=== PATIENT | male | born 1950 | race Caucasian/White ===

== ENCOUNTER 2017-04-06 10:22 | Emergency (ER) | payer SELFPAY ==
[2017-04-06 10:27] VITALS: TEMP 99.4; BMI 36.3
--- NOTE | 2017-04-06 10:43 | PDOC ---
Attending Attestation - Resident Resident Name: Warren Gillette - ED Attending Attestation I have performed the following: I have examined & evaluated the patient, The case was reviewed & discussed with the resident, I agree w/resident's findings & plan, Exceptions are as noted - HPI HPI: 04/06/17 10:58 66 yo M c/ hx of HTN, DM p/w cough x 3 weeks. The patient travels for several months of the year to [facility]. Recently returned yesterday. For 3 weeks, has had coughing with in the last 3 days with small amounts of hemoptysis. Denies chest or SOB, but has been endorsing tactile fevers and night sweats. Pt denies prior hx of TB but does report that TB is quite prevalent in [facility]. Flew in yesterday and came in today for an evaluation. - Physicial Exam PE: 04/06/17 11:00 GENERAL: Awake, alert, and fully oriented, in no acute distress. HEAD: No signs of trauma EYES: PERRLA, EOMI, sclera anicteric, conjunctiva clear ENT: Auricles normal inspection, hearing grossly normal, nares patent, oropharynx clear without exudates. NECK: Normal ROM, supple LUNGS: Breath sounds grossly clear bilaterally. Occasionally ronchorous. HEART: Regular rate and rhythm, normal S1 and S2, no murmurs, rubs or gallops ABDOMEN: Soft, nontender, normoactive bowel sounds. No guarding, no rebound. No masses EXTREMITIES: Normal range of motion, no edema. No clubbing or cyanosis. No cords, erythema, or tenderness NEUROLOGICAL: Cranial nerves II through XII grossly intact. Normal speech, normal gait SKIN: Warm, Dry, normal turgor, no rashes or lesions noted. - Medical Decision Making 04/06/17 11:00 Vital Signs Temp Pulse Resp BP Pulse Ox 99.4 F 110 H 18 161/101 96 04/06/17 10:22 04/06/17 10:22 04/06/17 10:22 04/06/17 10:22 04/06/17 10:22 The patient overall appears nontoxic, but given his history of DM and cough, it' ll be important to evaluate for PNA, bronchitis, vs. viral syndrome. However, given the small amounts of hemotypsis and from [facility], TB should be considered. Patient is placed in isolation. Consult ID after results and imaging return. In addition, will also perform CTA to rule out PE. Labs, cultures, and reassess. 04/06/17 13:23 CAT scan the chest demonstrates no acute lung pathology. Does demonstrate a possible partially left adrenal nodule measuring 1.8 cm. This may potentially be adrenal adenoma. The resident Dr. Gillette had consulted Dr. Slaughter. According to infectious disease, if the CAT scan of the head demonstrates no findings consistent with tuberculosis, patient can be discharged. CAT scan demonstrates no acute findings , so we'll discharge as bronchitis. We'll initiate with azithromycin and have the patient follow-up with his primary care physician. We'll inform the patient and his son regarding the nodule to have this follow- up with his doctor. Heart Score/ECG Review #1 ECG reviewed & interpreted by me at: 11:20 04/06/17 11:22 NSR 103, no std/caro, T wave flat III, QTC 461 msec
[2017-04-06] MEDS ORDERED: SODIUM CHLORIDE 1,000 ML IV STA (10:44)
--- NOTE | 2017-04-06 11:18 | PDOC ---
History of Present Illness - General Chief Complaint: Cold Symptoms Stated Complaint: COUGH Time Seen by Provider: 04/06/17 10:25 History Source: Patient Exam Limitations: No Limitations - History of Present Illness Initial Comments: 04/06/17 11:13 Patient is a 66M immigrant from [facility] (arrived yesterday), HTN, HLD, and DM ( on metformin) here today complaining of scant hemoptysis for the past 3 days, with a preceding cough for the past 3 weeks. He endorses associated nightsweats , and pain with swallowing. Patient denies history of incarceration. Patient denies chest pain, history of clots, leg swelling. Patient believes that he was vaccinated for TB. Patient denies sick contacts. Denies nausea, vomiting, abdominal pain. Denies smoking and illicits. Endorses alcohol use. Past History - Past Medical History Allergies/Adverse Reactions: Allergies Allergy/AdvReac Type Severity Reaction Status Date / Time No Known Allergies Allergy Verified 04/06/17 10:31 Home Medications: Ambulatory Orders Azithromycin [Zithromax 250mg Tablets -] 250 mg PO UTDICT #6 tab 04/06/17 Azithromycin [Zithromax 250mg Tablets -] 250 mg PO UTDICT #6 tab 04/06/17 Enalapril Maleate [Vasotec] 20 mg PO DAILY 04/06/17 Metformin HCl 0 mg PO BID 04/06/17 COPD: No Diabetes: Yes HTN: Yes - Suicide/Smoking/Psychosocial Hx Smoking History: Never smoked Hx Alcohol Use: Yes Drug/Substance Use Hx: No Substance Use Type: Alcohol Review of Systems - Review of Systems Comments:: 04/06/17 11:18 GENERAL/CONSTITUTIONAL: Positive for fever or chills. No weakness. HEAD, EYES, EARS, NOSE AND THROAT: No change in vision. No ear pain or discharge. Positive for sore throat. CARDIOVASCULAR: No chest pain or shortness of breath RESPIRATORY: Positive for cough and hemoptysis GASTROINTESTINAL: No nausea, vomiting, diarrhea. Positive for constipation. GENITOURINARY: No dysuria, frequency, or change in urination. MUSCULOSKELETAL: No joint or muscle swelling or pain. No neck or back pain. SKIN: No rash NEUROLOGIC: No headache, vertigo, loss of consciousness, or change in strength/ sensation. ENDOCRINE: No increased thirst. No abnormal weight change HEMATOLOGIC/LYMPHATIC: No anemia, easy bleeding, or history of blood clots. ALLERGIC/IMMUNOLOGIC: No hives or skin allergy. *Physical Exam - Vital Signs Last Vital Signs Temp Pulse Resp BP Pulse Ox 99.4 F 110 H 18 161/101 96 04/06/17 10:22 04/06/17 10:22 04/06/17 10:22 04/06/17 10:22 04/06/17 10:22 - Physical Exam Comments: 04/06/17 11:19 GENERAL: Awake, alert, and fully oriented, in no acute distress, coughing HEAD: No signs of trauma, normocephalic, atraumatic EYES: PERRLA, EOMI, sclera anicteric, conjunctiva clear ENT: Auricles normal inspection, hearing grossly normal, nares patent, oropharynx clear without exudates. Moist mucosa NECK: Normal ROM, supple, no lymphadenopathy, JVD, or masses LUNGS: Coarse breath sounds, speaks full sentences, clear to auscultation bilaterally HEART: Regular rate and rhythm, normal S1 and S2, no murmurs, rubs or gallops, peripheral pulses normal and equal bilaterally. ABDOMEN: Soft, nontender, normoactive bowel sounds. No guarding, no rebound. No masses EXTREMITIES: Normal inspection, Normal range of motion, no edema. No clubbing or cyanosis. NEUROLOGICAL: Cranial nerves II through XII grossly intact. Normal speech, normal gait, no focal sensorimotor deficits SKIN: Warm, Dry, normal turgor, no rashes or lesions noted. ED Treatment Course - LABORATORY CBC & Chemistry Diagram: 04/06/17 10:58 04/06/17 10:58 - RADIOLOGY Radiology Studies Ordered: Category Date Time Status CHEST CTA [CT] Stat CT Scan 04/06/17 10:42 Ordered CHEST X-RAY PORTABLE* [RAD] Stat Radiology 04/06/17 10:42 Ordered Medical Decision Making - Medical Decision Making 04/06/17 11:21 66M immigrant from [facility], HTN, DM, HLD here today complaining of hemoptysis. Vital signs notable for tachycardia. Differential diagnosis is broad, but includes: TB, PE, pneumonia, new onset copd exacerbation. Will evaluate with cbc , cmp, lactate, pt/inr, cxr, cta pe, trop. Will consult ID. Will treat with 1L of fluids. 04/06/17 11:46 EKG shows sinus tachycardia, rate 103. Normal axis. Normal DC, QRS, QTc intervals. No st elevations. No significant t wave abnormalities. CXR read as normal. 04/06/17 12:35 Dr Slaughter consulted, appreciate recs. He recommends CT scan of chest, says that patient is safe to discharge with outpatient workup if CT negative. 04/06/17 12:36 Laboratory Tests 04/06/17 04/06/17 04/06/17 10:58 10:58 10:58 WBC 8.7 Hgb 16.2 Hct 46.3 Plt Count 291 INR 1.07 Anion Gap 7 L Random Glucose 258 H Troponin I 04/06/17 10:58 WBC Hgb Hct Plt Count INR Anion Gap Random Glucose Troponin I < 0.03 CBC normal. INR negative. Glucose elevated, rest of CMP reassuring. Trop undetectable. Lactate pending. CXR read as normal by radiology. CT chest pending. 04/06/17 13:22 CTA chest shows no PE, shows possible adrenal adenoma. Patient advised of result , told to follow up with primary care physician. Lactate canceled given patient' s well appearance and lac of gap on CMP. 04/06/17 13:33 HR 99. Patient appears well. Will follow up with PCP. *DC/Admit/Observation/Transfer Diagnosis at time of Disposition: Cough - Discharge Dispostion Disposition: HOME Condition at time of disposition: Good Admit: No - Prescriptions Prescriptions: Azithromycin [Zithromax 250mg Tablets -] 250 mg PO UTDICT #6 tab Azithromycin [Zithromax 250mg Tablets -] 250 mg PO UTDICT #6 tab - Referrals - Patient Instructions Printed Discharge Instructions: DI for Acute Bronchitis Additional Instructions: You were seen today in the ED for cough. You were given a prescription for antibiotics. Please take them as prescribed and complete the course even if you feel better. You were found to have a possible adrenal adenoma. A copy of your CT scan report has been provided to you. Please follow up with your primary care physician. Please return if you have any new worsening or concerning symptoms. Please follow up with your PCP in the next week. - Post Discharge Activity
[2017-04-06 11:30] LABS: EOS % 1.4 % (0-4.5)
[2017-04-06 11:44] LABS: BASO % 0.4 % (0-2.0); HEMATOCRIT 46.3 % (35.4-49); HEMOGLOBIN 16.2 GM/dl (11.7-16.9); LYMPH % 21.8 % (8-40); MCH 32.3 pg (25.7-33.7); MEAN CELL VOLUME 92.4 fl (80-96); MEAN PLT VOLUME 7.8 fl (7.5-11.1); MONO % 7.8 % (3.8-10.2); NEUT % 68.6 % (42.8-82.8); PLATELET COUNT 291 K/MM3 (134-434); RBC 5.01 M/mm3 (4.00-5.60); RDW 11.4 % (11.9-15.9); WHITE BLOOD COUNT 8.7 K/mm3 (4.0-10.8)
[2017-04-06 11:46] LABS: INR 1.07 (0.82-1.09)
[2017-04-06 11:50] LABS: ALBUMIN 3.9 g/dl (3.5-5.0); ALK PHOS 80 U/L (32-92); ANION GAP 7 (8-16); BLOOD UREA NITROGEN 17 mg/dl (7-18); CALCIUM 9.2 mg/dl (8.4-10.2); CHLORIDE 102 mmol/L (98-107); CO2 27 mmol/L (22-28); CREATININE 0.8 mg/dl (0.6-1.3); GLUCOSE,RANDOM 258 mg/dl (74-106); POTASSIUM 3.9 mmol/L (3.5-5.1); SGOT/AST 27 U/L (10-42); SGPT/ALT 32 U/L (10-40); SODIUM 136 mmol/L (136-145)
[2017-04-06 12:42] VITALS: BP 153/100
[2017-04-06 13:40] VITALS: PULSE 99
--- NOTE | 2017-04-09 19:56 | EKG ---
Test Reason : Blood Pressure : / mmHG Vent. Rate : 103 BPM Atrial Rate : 103 BPM P-R Int : 180 ms QRS Dur : 084 ms QT Int : 352 ms P-R-T Axes : 048 -10 055 degrees QTc Int : 461 ms SINUS TACHYCARDIA CANNOT RULE OUT INFERIOR INFARCT , AGE UNDETERMINED ABNORMAL ECG NO PREVIOUS ECGS AVAILABLE Confirmed by LYN BROOKS MD ([id number]) on 04/09/2017 7:56:30 PM Referred By: ERICA WOOD Confirmed By:LYN BROOKS MD
== END 2017-04-06 13:46 | disposition home or self-care (01) ==
LOC: FER 10:22
PROC: 3E0337Z Introduction of Electrolytic and Water Balance Substance into Peripheral Vein, Percutaneous Approach (ICD-10-PCS; principal; 2017-04-06)
DX: R05 Cough (principal); E11.9 Type 2 diabetes mellitus without complications; I10 Essential (primary) hypertension
CPT/HCPCS: 36415; 71045-TC-FY; 71275-TC; 80053; 83605; 84484; 85025; 85610; 86850; 86900; 86901; 87040; 93005; 99283-25

== ENCOUNTER 2017-11-03 18:24 | Emergency (ER) | payer OTHER ==
[2017-11-03 18:36] VITALS: BP 148/92; PULSE 68; TEMP 98.5; BMI 36.1
--- NOTE | 2017-11-03 18:45 | PDOC ---
History of Present Illness - General History Source: Patient, Family (Daughter.) Exam Limitations: No Limitations - History of Present Illness Initial Comments: 11/03/17 18:51 The patient is a 66 year old male, with a significant past medical history of HTN, HLD, DM, who presents to the emergency department with, 2 days of elevated blood pressure. As per patients daughter, his blood pressure has been ranging between 170s/90s to 190s/110s with an associated headache and diffuse weakness. She reports that today the patient doubled his dosage of Enalapril 20 mg (one morning and one evening) as his PCP (unknown doctor at [facility]) recommended. The daughter also reports that for many years this patients blood pressure normally becomes elevated around this time of year. The patient was recently evaluated by his ordnance technician and flower picker without any pertinent findings within the past month. He denies any loss of strength or sensation. He denies any recent fevers, chills, or dizziness. He denies any recent nausea, vomit, diarrhea or constipation. He denies any recent chest pain or shortness of breath. He denies any recent dysuria, frequency, urgency or hematuria. The history was taken from the patients daughter at bedside due to language barriers. Allergies: NKA Past surgical history: None reported. Social History: Social alcohol usage. Nonsmoker. Denies recreational drug use. <Farheen Hand - Last Filed: 11/03/17 18:50> <Suzan Maldonado - Last Filed: 11/04/17 11:46> - General Chief Complaint: Blood Pressure Problem Stated Complaint: HTN Time Seen by Provider: 11/03/17 18:34 Past History <Farheen Hand - Last Filed: 11/03/17 18:50> - Past Medical History COPD: No Diabetes: Yes HTN: Yes - Suicide/Smoking/Psychosocial Hx Smoking History: Never smoked Have you smoked in the past 12 months: No Information on smoking cessation initiated: No Hx Alcohol Use: No Drug/Substance Use Hx: No Substance Use Type: Alcohol <Suzan Maldonado - Last Filed: 11/04/17 11:46> - Past Medical History Allergies/Adverse Reactions: Allergies Allergy/AdvReac Type Severity Reaction Status Date / Time No Known Allergies Allergy Verified 11/03/17 18:25 Home Medications: Ambulatory Orders Enalapril Maleate [Vasotec] 20 mg PO DAILY 04/06/17 metFORMIN HCL [Metformin HCl] 2,000 mg PO BID 04/06/17 Atorvastatin Ca [Lipitor] 40 mg PO HS 11/03/17 Review of Systems - Review of Systems Able to Perform ROS?: Yes Comments:: 11/03/17 18:51 +GENERAL/CONSTITUTIONAL: Diffuse weakness. No fever or chills. HEAD, EYES, EARS, NOSE AND THROAT: No change in vision. No ear pain or discharge. No sore throat. CARDIOVASCULAR: No chest pain or shortness of breath. RESPIRATORY: No cough, wheezing, or hemoptysis. GASTROINTESTINAL: No nausea, vomiting, diarrhea or constipation. GENITOURINARY: No dysuria, frequency, or change in urination. MUSCULOSKELETAL: No joint or muscle swelling or pain. No neck or back pain. SKIN: No rash +NEUROLOGIC: Headache. No vertigo, loss of consciousness, or change in strength/ sensation. ENDOCRINE: No increased thirst. No abnormal weight change. HEMATOLOGIC/LYMPHATIC: No anemia, easy bleeding, or history of blood clots. ALLERGIC/IMMUNOLOGIC: No hives or skin allergy. All Other Systems: Reviewed and Negative <Farheen Hand - Last Filed: 11/03/17 18:50> *Physical Exam - Vital Signs Last Vital Signs Temp Pulse Resp BP Pulse Ox 98.5 F 68 20 148/92 99 11/03/17 18:25 11/03/17 18:25 11/03/17 18:25 11/03/17 18:25 11/03/17 18:25 - Physical Exam Comments: 11/03/17 18:51 GENERAL: Awake, alert, and fully oriented, in no acute distress HEAD: No signs of trauma ENT: Hearing grossly normal, nares patent, oropharynx clear without exudates. Moist mucosa NECK: Normal ROM, supple, no lymphadenopathy, JVD, or masses LUNGS: Breath sounds equal, clear to auscultation bilaterally. No wheezes, and no crackles HEART: Regular rate and rhythm, normal S1 and S2, no murmurs, rubs or gallops ABDOMEN: Soft, nontender, normoactive bowel sounds. No guarding, no rebound. No masses EXTREMITIES: Normal range of motion, no edema. No clubbing or cyanosis. No cords, erythema, or tenderness NEUROLOGICAL: Cranial nerves II through XII grossly intact. Normal speech, normal gait SKIN: Warm, Dry, normal turgor, no rashes or lesions noted. <Farheen Hand - Last Filed: 11/03/17 18:50> - Vital Signs Last Vital Signs Temp Pulse Resp BP Pulse Ox 98.5 F 68 20 148/92 99 11/03/17 18:25 11/03/17 18:25 11/03/17 18:25 11/03/17 18:25 11/03/17 18:25 <Suzan Maldonado - Last Filed: 11/04/17 11:46> Heart Score/ECG Review - ECG Impressions Comment:: EKG read 19:03- sinus rhythm with 1st deg AV block, rate 68 bpm, incomplete RBBB Similar to prior EKG from March 2017 <Suzan Maldonado - Last Filed: 11/04/17 11:46> Medical Decision Making - Medical Decision Making Pt with HTN, no significant neuro or cardiac symptoms. BP is at his baseline at present after taking extra dose of enalapril. As this change in BP seems to happen at certain times of the year, would not add additional medications at this time. Will refer back to his PMD, as he will need to be monitored closely if any changes needed. <Suzan Maldonado - Last Filed: 11/04/17 11:46> *DC/Admit/Observation/Transfer - Attestations Scribe Attestion: 11/03/17 18:51 Documentation prepared by Farheen Hand, acting as medical billing service for Suzan Maldonado MD. <Farheen Hand - Last Filed: 11/03/17 18:50> - Discharge Dispostion Decision to Admit order: No <Suzan Maldonado - Last Filed: 11/04/17 11:46> Diagnosis at time of Disposition: Hypertension Qualifiers: Hypertension type: essential hypertension Qualified Code(s): I10 - Essential ( primary) hypertension - Discharge Dispostion Disposition: HOME Condition at time of disposition: Stable - Patient Instructions Printed Discharge Instructions: DI for High Blood Pressure Additional Instructions: CONTINUE TO TAKE MEDICATION PRESCRIBED. IF BLOOD PRESSURE IS ELEVATED TOMORROW, CAN TAKE AN EXTRA DOSE OF MEDICATION YOU DID TODAY. FOLLOW UP WITH YOUR DOCTOR ON SUNDAY, THE MEDICATION MAY NEED TO BE ADJUSTED IF YOUR BLOOD PRESSURE REMAINS HIGH.
--- NOTE | 2017-11-04 22:22 | EKG ---
Test Reason : Blood Pressure : / mmHG Vent. Rate : 067 BPM Atrial Rate : 067 BPM P-R Int : 218 ms QRS Dur : 092 ms QT Int : 398 ms P-R-T Axes : 043 -04 046 degrees QTc Int : 420 ms SINUS RHYTHM WITH 1ST DEGREE A-V BLOCK INCOMPLETE RIGHT BUNDLE BRANCH BLOCK POSSIBLE INFERIOR INFARCT (CITED ON OR BEFORE 06-APR-2017) ABNORMAL ECG WHEN COMPARED WITH ECG OF 06-APR-2017 11:20, MD INTERVAL HAS INCREASED VENT. RATE HAS DECREASED BY 36 BPM Confirmed by ROMAIN DACOSTA MD ([id number]) on 11/04/2017 10:21:54 PM Referred By: DR HA Confirmed By:ROMAIN DACOSTA MD
== END 2017-11-03 19:16 | disposition home or self-care (01) ==
LOC: FER 18:24
DX: I10 Essential (primary) hypertension (principal); E11.9 Type 2 diabetes mellitus without complications
CPT/HCPCS: 93005; 99281-25

== ENCOUNTER 2019-03-24 09:47 | Emergency (ER) | payer OTHER ==
--- NOTE | 2019-03-24 09:50 | PDOC ---
History of Present Illness <Damien Jimenes - Last Filed: 03/24/19 12:39> - General History Source: Patient, Family Exam Limitations: Language Barrier - History of Present Illness Initial Comments: 03/24/19 09:50 Quang Black is a 68 year old Cypriot male with PMH HTN, HLD, DM presenting with one month of dizziness and unsteady gait. Patient presents with daughter who lives with him and translates. Patient and daughter report patient has been having one month of what patient describes as dizziness, now with worsening unsteady gait for the last 10 days. Does not say that his legs feel weak or that the room is spinning, but rather that he feels off-balance like he is going to fall. Almost fell 3 days ago, denies any head injury or LOC. Daughter brought here today for worsening ability to ambulate. Denies prior history of dizziness, denies room-spinning vertigo, denies tinnitus. Denies any chest pain, palpitations, SOB, abdominal pain. Does endorse a PISANO, occurs sporadically in the back of his head, no inciting triggers , stays for 40 minutes and disappears on its own, has trialled Tylenol and Advil without effect, denies vision changes or related N/V. No known allergies. Takes anti-hypertensive medications daily, says BP has been elevated. PMD Dr. Sotelo (?), has not seen in >6 months. PSH R ankle procedure for injury a long time ago, R eye surgery <Jhon Valdez - Last Filed: 03/24/19 15:48> - General Chief Complaint: Lightheaded Stated Complaint: DIZZINESS Time Seen by Provider: 03/24/19 09:49 Past History <Damien Jimenes - Last Filed: 03/24/19 12:39> - Past Medical History COPD: No Diabetes: Yes HTN: Yes - Psycho Social/Smoking Cessation Hx Smoking History: Never smoked Have you smoked in the past 12 months: No Hx Alcohol Use: No Drug/Substance Use Hx: No Substance Use Type: Alcohol <Jhon Valdez - Last Filed: 03/24/19 15:48> - Past Medical History Allergies/Adverse Reactions: Allergies Allergy/AdvReac Type Severity Reaction Status Date / Time No Known Allergies Allergy Verified 03/24/19 09:49 Home Medications: Ambulatory Orders Aspirin [Aspirin EC] 81 mg PO DAILY 03/24/19 Atorvastatin Ca [Lipitor] 10 mg PO HS 03/24/19 Enalapril Maleate [Vasotec] 20 mg PO DAILY 03/24/19 Hydrochlorothiazide [Hctz -] 25 mg PO DAILY 03/24/19 Meclizine HCl [Antivert -] 25 mg PO TID #20 tablet 03/24/19 Metformin HCl [Glucophage] 1,000 mg PO BID 03/24/19 Review of Systems - Review of Systems Able to Perform ROS?: Yes Constitutional: No: Chills, Fever HEENTM: No: Blurred Vision, Double Vision, Hearing Loss Respiratory: No: Cough, Shortness of Breath, Productive cough Cardiac (ROS): No: Chest Pain, Edema, Irregular Heart Rate, Lightheadedness, Palpitations, Syncope, Chest Tightness ABD/GI: No: Constipated, Diarrhea, Nausea, Poor Appetite, Poor Fluid Intake, Vomiting : No: Symptoms Reported Musculoskeletal: No: Back Pain, Muscle Pain, Muscle Weakness, Neck Pain Integumentary: No: Symptoms Reported Neurological: Yes: Headache, Unsteady Gait, Dizziness. No: Numbness, Paresthesia, Weakness Endocrine: No: Symptoms Reported Hematologic/Lymphatic: No: Symptoms Reported All Other Systems: Reviewed and Negative <Jhon Valdez - Last Filed: 03/24/19 15:48> *Physical Exam - Vital Signs Last Vital Signs Temp Pulse Resp BP Pulse Ox 98.5 F 73 16 156/103 H 96 03/24/19 09:47 03/24/19 11:58 03/24/19 10:05 03/24/19 11:58 03/24/19 10:05 <Damien Jimenes - Last Filed: 03/24/19 12:39> - Physical Exam General Appearance: Yes: Nourished, Appropriately Dressed, Other (well- appearing male resting comfortably in bed in no acute distress). No: Apparent Distress HEENT: positive: EOMI, ZOHREH, Normal ENT Inspection, Normal Voice, Symmetrical, Pharynx Normal, Hearing Grossly Normal. negative: Scleral Icterus (R), Scleral Icterus (L), Pharyngeal Erythema, Tonsillar Exudate, Hearing Decreased Neck: positive: Trachea midline, Normal Thyroid, Supple. negative: Tender, Decreased range of motion, Lymphadenopathy (R), Lymphadenopathy (L) Respiratory/Chest: positive: Lungs Clear, Normal Breath Sounds. negative: Chest Tender, Respiratory Distress, Accessory Muscle Use, Crackles, Rales, Rhonchi, Stridor, Wheezing Cardiovascular: positive: Regular Rhythm, Regular Rate. negative: Murmur Gastrointestinal/Abdominal: positive: Normal Bowel Sounds, Soft, Protuberent. negative: Tender, Organomegaly, Pulsatile Mass, Guarding, Rebound Musculoskeletal: positive: Normal Inspection. negative: CVA Tenderness, Decreased Range of Motion Extremity: positive: Normal Capillary Refill, Normal Inspection, Normal Range of Motion, Pelvis Stable. negative: Tender Integumentary: positive: Normal Color, Dry, Warm. negative: Jaundice, Mottled, Cold, Clammy, Diaphoresis, Swelling Neurologic: positive: pot builder II-XII NML intact, Fully Oriented, Alert, Normal Mood/ Affect, Normal Response, Motor Strength 5/5, Finger to Nose (normal), Other ( Normal gait, but has truncal ataxia after standing/walking for >30 seconds. CN exam normal. 5/5 motor strength all groups. No sensory deficits to LT. No nystagmus. HINTS: no saccades, no nystagmus, no skew.). negative: Numbness, Sensory Deficit <Jhon Valdez - Last Filed: 03/24/19 15:48> ED Treatment Course - LABORATORY CBC & Chemistry Diagram: 03/24/19 10:20 03/24/19 10:20 - ADDITIONAL ORDERS Additional order review: Laboratory Results 03/24/19 03/24/19 03/24/19 10:20 10:20 10:20 Sodium 137 Potassium 3.8 Chloride 102 Carbon Dioxide 28 Anion Gap 7 L BUN 15.0 Creatinine 1.0 Est GFR (CKD-EPI)AfAm 89.23 Est GFR (CKD-EPI)NonAf 76.99 Random Glucose 155 H Calcium 9.1 Total Bilirubin 0.8 AST 23 ALT 35 Alkaline Phosphatase 60 Creatine Kinase 43 Troponin I < 0.03 Total Protein 7.0 Albumin 4.1 03/24/19 10:20 RBC 4.64 MCV 92.3 MCHC 33.2 RDW 11.9 MPV 8.0 Neutrophils % 64.1 Lymphocytes % 26.8 D Monocytes % 7.0 Eosinophils % 1.7 Basophils % 0.4 <D'Ambrosia,Damien J - Last Filed: 03/24/19 12:39> - LABORATORY CBC & Chemistry Diagram: 03/24/19 10:20 03/24/19 10:20 - RADIOLOGY Radiograph Interpretation: 03/24/19 12:18 CT Head There is [id number] volume loss and ventricular dilatation. Probable minimal periventricular chronic microvascular ischemic disease changes are present. No mass lesion, gross acute infarct, intracranial hemorrhage or abnormal intracranial enhancement are identified. There is no shift of the midline structures. The craniocervical junction appears unremarkable. The calvarium is intact. Faint calcification of the cavernous carotid arteries are present. Mastoid air cells are well aerated. There is a partially included retention cyst versus polyp in the left maxillary antrum measuring 1.5 cm. Otherwise, the visualized paranasal sinuses are well aerated. IMPRESSION: Gvmb-sa-fdtsgeus volume loss and probable minimal periventricular chronic microvascular ischemic disease changes. No acute intracranial pathology or abnormal enhancement are identified. Partially included approximately 1.5 cm retention cyst versus polyp in the left maxillary antrum. <Jhon Valdez - Last Filed: 03/24/19 15:48> Medical Decision Making - Medical Decision Making 03/24/19 10:33 Patient presents with over a week of unsteady gait associated with dizziness and intermittent posterior PISANO. Patient has no significant CN deficits, no motor deficits, no sensory deficits, no PMH CVA or VA. Notable truncal ataxia and unsteady gait. Concerned for posterior CVA vs. mass lesion as cause of symptoms constellation, has some risk factors including HTN, HLD, DM. - CMP/CBC for eval renal function and infection - ECG for eval arrhythmia as cause of dizziness - CP for eval cardiac function - CT Head with contrast to eval for mass 03/24/19 11:24 ECG shows 1st degree AV block with incomplete RBBB, Q waves in III, HR 76, QRS 94, QTc 425, no other concerning TWI or ischemic changes. Labs notable for: - CMP WNL - CBC WNL - CP WNL 03/24/19 12:19 CT head shows no evidence of any enhancing or mass lesion. No evidence of cardiac disease as cause at this time. If posterior CVA, would likely appear on CT given prolonged course of symptoms. Re-evaluation shows patient feels dizzy with position changes but goes away with time, consistent with BPPV. Will trial meclizine and d/c home with ENT and neuro f/u. <Jhon Valdez - Last Filed: 03/24/19 15:48> Discharge - Discharge Information Problems reviewed: Yes - Admission No <Damien Jimenes - Last Filed: 03/24/19 12:39> - Discharge Information Problems reviewed: Yes <Jhon Valdez - Last Filed: 03/24/19 15:48> - Discharge Information Clinical Impression/Diagnosis: Vertigo Condition: Stable Disposition: HOME - Additional Discharge Information Prescriptions: Meclizine HCl [Antivert -] 25 mg PO TID #20 tablet - Follow up/Referral Referrals: Genny Acuña MD [Primary Care Provider] - Long Lee MD [Staff Physician] - Oneal Jordan DO [Staff Physician] - - Patient Discharge Instructions Patient Printed Discharge Instructions: DI for Vertigo Additional Instructions: Scan of the head showed no disease in the brain. Symptoms may be due to inflammation of the balance control center of the inner ear. Trial of medications as directed. See ENT specialist and neurologist for follow-up as directed. Return to ER if symptoms worse. - Post Discharge Activity
[2019-03-24 10:12] VITALS: TEMP 98.5; BMI 34.5
--- NOTE | 2019-03-24 10:22 | PDOC ---
Attending Attestation - Resident Resident Name: AdyluisJhon - ED Attending Attestation I have performed the following: I have examined & evaluated the patient, The case was reviewed & discussed with the resident, I agree w/resident's findings & plan, Exceptions are as noted - HPI HPI: 03/24/19 13:08 According to his daughter, the patient has been unsteady on his feet for the past 2 weeks. This appears to be transient. It occurs momentarily, and then resolves, allowing him to resume his normal activity. He also feels unsteady when he changes positions from a lying to a sitting posture. No other visual or focal neurologic symptoms. No focal weakness. No fever/ chills URI symptoms sore throat cough. No earache, tinnitus, or noticeable decreased hearing. - Physicial Exam PE: 03/24/19 13:11 Physical exam: Mildly elevated blood pressure, otherwise vital signs normal. Afebrile. PERRLA 3 mm, fundi benign with sharp disc margins and good central venous pulsations, no hemorrhages or exudates. EOMs full without diplopia. No nystagmus. Visual villalpando intact to confrontation. Ears nose and throat clear Neck supple without bruit mass or nodes Lungs clear CV regular without murmur rub or gallop Abdomen benign Neurological C2 to 12 intact. Strength full and symmetric. No focal sensorimotor deficits. Gait is momentarily unsteady when arising, but then stabilizes. - Medical Decision Making 03/24/19 13:12 Assessment: Although the patient denies the room "spinning around" his symptoms suggest vestibular/labyrinthine irritation or inflammation. Rule out brain lesion Plan: CT of the brain with contrast is negative. Trial of meclizine seem to improve his symptoms. To continue meclizine 3 times daily, follow-up with ENT, neurologist as referred. Better blood pressure control with regular cardiology appointments as scheduled. Return to ER if symptoms worsen. Fully ambulatory and in no significant distress at discharge with daughter to follow-up as directed
[2019-03-24 10:46] LABS: BASO % 0.4 % (0-2.0); EOS % 1.7 % (0-4.5); HEMATOCRIT 42.8 % (35.4-49); HEMOGLOBIN 14.2 GM/dl (11.7-16.9); LYMPH % 26.8 % (8-40); MCH 30.6 pg (25.7-33.7); MCHC 33.2 g/dl (32.0-35.9); MEAN CELL VOLUME 92.3 fl (80-96); NEUT % 64.1 % (42.8-82.8); PLATELET COUNT 252 K/MM3 (134-434); RBC 4.64 M/mm3 (4.00-5.60); RDW 11.9 % (11.9-15.9); WHITE BLOOD COUNT 6.8 K/mm3 (4.0-10.8)
[2019-03-24 10:52] LABS: ALBUMIN 4.1 g/dl (3.4-5.0); BILIRUBIN,TOTAL 0.8 mg/dl (0.2-1); CALCIUM 9.1 mg/dl (8.5-10); POTASSIUM 3.8 mmol/L (3.5-5.1)
[2019-03-24] MEDS ORDERED: MECLIZINE HCL 25 MG TABLET (FP) PO ONE (12:35)
[2019-03-24] MEDS ORDERED: MECLIZINE HCL 25 MG TABLET (FP) ONE (12:39)
[2019-03-24 13:16] VITALS: BP 139/97; PULSE 76
--- NOTE | 2019-03-25 09:28 | EKG ---
Test Reason : Blood Pressure : / mmHG Vent. Rate : 076 BPM Atrial Rate : 076 BPM P-R Int : 214 ms QRS Dur : 094 ms QT Int : 378 ms P-R-T Axes : 039 -11 045 degrees QTc Int : 425 ms SINUS RHYTHM WITH 1ST DEGREE A-V BLOCK INCOMPLETE RIGHT BUNDLE BRANCH BLOCK INFERIOR INFARCT (CITED ON OR BEFORE 06-APR-2017) ABNORMAL ECG WHEN COMPARED WITH ECG OF 03-NOV-2017 19:01, NO SIGNIFICANT CHANGE WAS FOUND Confirmed by Ernesto Bennett MD ([id number]) on 03/25/2019 9:27:41 AM Referred By: LUX ZARAGOZA Confirmed By:Ernesto Bennett MD
== END 2019-03-24 13:15 | disposition home or self-care (01) ==
LOC: FER 09:47
DX: R42 Dizziness and giddiness (principal); I10 Essential (primary) hypertension; E11.9 Type 2 diabetes mellitus without complications; E78.5 Hyperlipidemia, unspecified
CPT/HCPCS: 36415; 70460-TC; 80053; 82550; 84484; 85025; 93005; 99285-25; Q9967

== ENCOUNTER 2019-09-13 10:50 | Inpatient (IN) | payer OTHER ==
--- NOTE | 2019-09-13 11:01 | PDOC ---
History of Present Illness - General Chief Complaint: Abscess Boil Stated Complaint: PENIS ABSCESS Time Seen by Provider: 09/13/19 11:00 - History of Present Illness Initial Comments: 09/13/19 11:01 68 year old Georgian male with PMH HTN, HLD, DM presenting with penile swelling and pain. Pt states swelling/pain has been present for about 4 days. Pt presents with his son-in-law who is translating as the patient speaks Georgian. Pt deneis f/c. Pt takes lisinopril and metformin. Pt denies trauma. Pt denies abd pain. No dysuria. No cp/sob. No f/c. No n/v/d. No penile discharge, but states tip of penis is red and swollen and tender. Pt denies scrotal pain. pt denies testicular pain. Pt denies all other complaints. Pt ambulated into the ER. States he was trying to see his pmd, couldn't get in, so he went to [facility] which recommended the patient come in for eval of the penile swelling. Past History - Medical History Allergies/Adverse Reactions: Allergies Allergy/AdvReac Type Severity Reaction Status Date / Time No Known Allergies Allergy Verified 09/13/19 11:26 Home Medications: Ambulatory Orders Aspirin [Aspirin EC] 81 mg PO DAILY 03/24/19 Atorvastatin Ca [Lipitor] 10 mg PO HS 03/24/19 Enalapril Maleate [Vasotec] 20 mg PO DAILY 03/24/19 Hydrochlorothiazide [Hctz -] 25 mg PO DAILY 03/24/19 Metformin HCl [Glucophage] 1,000 mg PO BID 03/24/19 COPD: No Diabetes: Yes HTN: Yes Hypercholesterolemia: Yes - Psycho-Social/Smoking History Smoking History: Never smoked Have you smoked in the past 12 months: No Review of Systems - Review of Systems Able to Perform ROS?: Yes Comments:: 09/13/19 11:35 son-in-law translating and present during the exam Is the patient limited Canadian proficient: Yes Constitutional: No: Chills, Fever HEENTM: No: Nose Congestion, Throat Swelling Respiratory: No: Cough, Shortness of Breath Cardiac (ROS): No: Chest Pain ABD/GI: No: Diarrhea, Nausea, Vomiting, Abdominal cramping : Yes: Other (penile swelling and pain) Musculoskeletal: No: Back Pain, Joint Pain Integumentary: Yes: Other (penile swelling and redness) Neurological: No: Headache, Numbness, Paresthesia All Other Systems: Reviewed and Negative *Physical Exam - Vital Signs 09/13/19 11:36 Selected Entries 09/13/19 11:00 Temperature 98.6 F Pulse Rate 100 H Respiratory 16 Rate Blood Pressure 129/90 Blood Pressure 103 Mean O2 Sat by Pulse 100 Oximetry (%) Weight 102.058 kg - Physical Exam General Appearance: Yes: Nourished, Appropriately Dressed. No: Apparent Distress HEENT: positive: EOMI, Normal Voice Neck: positive: Supple Respiratory/Chest: positive: Lungs Clear, Normal Breath Sounds. negative: Respiratory Distress Cardiovascular: positive: Regular Rate, S1, S2, Tachycardia Gastrointestinal/Abdominal: positive: Soft. negative: Guarding, Rebound, Tenderness Male Genitalia: positive: other (pt is uncircumcised, penile redness and swelling, white discharge at tip of penis, ttp along the penis without fluctuance, induration, crepitus, soft tissue swelling from the foreskin to shaft of the penis). negative: testicular tenderness, testicular mass, epididymus tender Musculoskeletal: positive: Normal Inspection. negative: CVA Tenderness Extremity: negative: Swelling, Calf Tenderness Integumentary: positive: Erythema (of the penile shaft) Neurologic: positive: Fully Oriented, Alert, Other (ambulatory in the Er with a steady gait) ED Treatment Course - LABORATORY CBC & Chemistry Diagram: 09/13/19 11:45 09/13/19 11:45 Medical Decision Making - Medical Decision Making 09/13/19 11:39 a/p: 68yo male with penile swelling -sent from urgent care for further evaluation -concern for balanitis with cellulitis spread proximally -warmth, ttp, no crepitus or fluctuance -pocus ordered and obtained that shows cobblestoning along the shaft of the penis without discrete abscess formation -will send labs, cultures -will start iv abx -given hx of dm, will monitor and reassess 09/13/19 12:47 labs reviewed elevated glu no elevated wbc call placed to Dr. Fregoso to discuss penile cellulitis 09/13/19 13:[address] Fregoso - given uncontrolled DM and tachy, admission for iv abx. If improvement can dc tomorrow on oral abx. If no improvement then continue iv abx pt updated and agrees to the plan iv abx given already microblog sent to [facility] for admission pt has been covid swabbed in the ER 09/13/19 13:18 case discussed with Theresa from [facility] who accepts pt to service Discharge - Discharge Information Problems reviewed: Yes Clinical Impression/Diagnosis: Balanitis, Penile cellulitis Condition: Fair - Admission Yes - Follow up/Referral Referrals: Genny Acuña MD [Primary Care Provider] - - Patient Discharge Instructions - Post Discharge Activity
[2019-09-13] MEDS ORDERED: CLINDAMYCIN 600MG PREMIX IVPB 600 MG/50 ML BAG IVPB ONE (11:14)
[2019-09-13] MEDS ORDERED: CLINDAMYCIN PHOSPHATE 600 MG/4 ML VIAL ONE (11:43)
[2019-09-13 12:15] LABS: EPITHELIAL CELLS FEW /hpf
[2019-09-13 12:19] LABS: BASO % 0.4 % (0-2.0); EOS % 1.9 % (0-4.5); HEMOGLOBIN 14.6 GM/dl (11.7-16.9); LYMPH % 27.5 % (8-40); MCH 31.2 pg (25.7-33.7); MCHC 34.8 g/dl (32.0-35.9); MEAN CELL VOLUME 89.7 fl (80-96); MEAN PLT VOLUME 7.6 fl (7.5-11.1); NEUT % 65.2 % (42.8-82.8); PLATELET COUNT 253 K/MM3 (134-434); RBC 4.68 M/mm3 (4.00-5.60); RDW 11.9 % (11.9-15.9); WHITE BLOOD COUNT 7.6 K/mm3 (4.0-10.8)
[2019-09-13 12:34] LABS: ALBUMIN 4.1 g/dl (3.4-5.0); BILIRUBIN,TOTAL 0.8 mg/dl (0.2-1); CALCIUM 9.7 mg/dl (8.5-10); POTASSIUM 3.9 mmol/L (3.5-5.1); TOT PROT 6.8 g/dl (6.4-8.2)
--- NOTE | 2019-09-13 13:42 | HP ---
CHIEF COMPLAINT: Penile pain / swelling PCP:Genny Acuña HISTORY OF PRESENT ILLNESS: This is a 68 year old Mohawk male with PMHX of HTN, HLD, and DM who was sent from urgent care for the evaluation of penile swelling and pain. Pt states swelling/pain started about 4 days ago. Pt denies any penile trauma, scrotal/ testicular pain,no discharge, fever, chills, cp, sob, palpitations, abdominal pain, N/V/D, hematuria, dysuria, frequency or oliguria. ER course was notable for: (1) Afebrile, wbc 7.6, HR 100 (2)Na 135, Bun 27, Cre 1, Blood glucose 375 (3) US : No sonographic evidence of soft tissue abnormality , cellulitis Recent Travel:No PAST MEDICAL HISTORY: As mentioned above PAST SURGICAL HISTORY: Rt ankle procedure for injury a long time ago,, >50 yrs ago R eye surgery 6 months ago for cataract Social History: Smoking:Never Alcohol: Social, 1-2 drinks per week Drugs: None Allergies No Known Allergies Allergy (Verified 09/13/19 11:26) HOME MEDICATIONS: Home Medications Medication Instructions Recorded Aspirin [Aspirin EC] 81 mg PO DAILY 03/24/19 Atorvastatin Ca [Lipitor] 10 mg PO HS 03/24/19 Enalapril Maleate [Vasotec] 20 mg PO DAILY 03/24/19 Hydrochlorothiazide [Hctz -] 25 mg PO DAILY 03/24/19 Metformin HCl [Glucophage] 1,000 mg PO BID 03/24/19 REVIEW OF SYSTEMS CONSTITUTIONAL: Absent: fever, chills, diaphoresis, generalized weakness, malaise, loss of appetite, weight change HEENT: Absent: rhinorrhea, nasal congestion, throat pain, throat swelling, difficulty swallowing, mouth swelling, ear pain, eye pain, visual changes CARDIOVASCULAR: Absent: chest pain, syncope, palpitations, irregular heart rate, lightheadedness, peripheral edema RESPIRATORY: Absent: cough, shortness of breath, dyspnea with exertion, orthopnea, wheezing, stridor, hemoptysis GASTROINTESTINAL: Absent: abdominal pain, abdominal distension, nausea, vomiting, diarrhea, constipation, melena, hematochezia GENITOURINARY: penile pain Absent: dysuria, frequency, urgency, hesitancy, hematuria, flank pain, genital pain MUSCULOSKELETAL: Absent: myalgia, arthralgia, joint swelling, back pain, neck pain SKIN: Absent: rash, itching, pallor HEMATOLOGIC/IMMUNOLOGIC: Absent: easy bleeding, easy bruising, lymphadenopathy, frequent infections ENDOCRINE: Absent: unexplained weight gain, unexplained weight loss, heat intolerance, cold intolerance NEUROLOGIC: Absent: headache, focal weakness or paresthesias, dizziness, unsteady gait, seizure, mental status changes, bladder or bowel incontinence PSYCHIATRIC: Absent: anxiety, depression, suicidal or homicidal ideation, hallucinations. PHYSICAL EXAMINATION Vital Signs - 24 hr 09/13/19 11:00 Temperature 98.6 F Pulse Rate 100 H Respiratory 16 Rate Blood Pressure 129/90 O2 Sat by Pulse 100 Oximetry (%) GENERAL: Awake, alert, and fully oriented, in no acute distress. HEAD: Normal with no signs of trauma. EYES: Pupils equal, round and reactive to light, extraocular movements intact, sclera anicteric, conjunctiva clear. No lid lag. EARS, NOSE, THROAT: Ears normal, nares patent, oropharynx clear without exudates. Moist mucous membranes. NECK: Normal range of motion, supple without lymphadenopathy, JVD, or masses. LUNGS: Breath sounds equal, clear to auscultation bilaterally. No wheezes, and no crackles. No accessory muscle use. HEART: Regular rate and rhythm, normal S1 and S2 without murmur, rub or gallop. ABDOMEN: Soft, nontender, not distended, normoactive bowel sounds, no guarding, no rebound, no masses. No hepatomegaly or splenomegaly. MUSCULOSKELETAL: Normal range of motion at all joints. No bony deformities or tenderness. No CVA tenderness. UPPER EXTREMITIES: 2+ pulses, warm, well-perfused. No cyanosis. No clubbing. No peripheral edema. LOWER EXTREMITIES: 2+ pulses, warm, well-perfused. No calf tenderness. No peripheral edema. NEUROLOGICAL: Cranial nerves II-XII intact. Normal speech. Normal gait. PSYCHIATRIC: Cooperative. Good eye contact. Appropriate mood and affect. SKIN: Warm, dry, normal turgor, no rashes or lesions noted, normal capillary refill. , penile redness/ pain at the tiop of penis,no discharge, Laboratory Results - last 24 hr 09/13/19 09/13/19 09/13/19 11:40 11:45 11:45 WBC 7.6 RBC 4.68 Hgb 14.6 Hct 42.0 MCV 89.7 MCH 31.2 MCHC 34.8 RDW 11.9 Plt Count 253 MPV 7.6 Absolute Neuts (auto) 5.0 Neutrophils % 65.2 Lymphocytes % 27.5 Monocytes % 5.0 Eosinophils % 1.9 Basophils % 0.4 Sodium 135 L Potassium 3.9 Chloride 98 Carbon Dioxide 23 Anion Gap 14 BUN 27.0 H Creatinine 1.0 Est GFR (CKD-EPI)AfAm 89.23 Est GFR (CKD-EPI)NonAf 76.99 Random Glucose 375 H Calcium 9.7 Total Bilirubin 0.8 AST 25 ALT 34 Alkaline Phosphatase 73 Total Protein 6.8 Albumin 4.1 Urine Color Yellow Urine Appearance Clear Urine pH 5.0 Urine Protein Negative Urine Glucose (UA) 3+ Urine Ketones Negative Urine Blood Trace-intact Urine Nitrite Negative Urine Bilirubin Negative Urine Urobilinogen 0.2 Ur Leukocyte Esterase Negative Urine RBC 2-5 Urine WBC 0-2 Ur Transition Epith Cell Few Urine Bacteria Few ASSESSMENT/PLAN: 68 year old Moh[place] male with PMH HTN, HLD, DM presents for the evaluation of penile swelling and pain.Admitted with Balanitis, Penile cellulitis. *Balanitis, Penile cellulitis - afebrile with no leukocytosis - UA trace blood, no pyuria - will f/u on blood and Urine culture - s/p Clindamycin in ER, will cont - pain control - ER,case discussed with urology Dr. Fregoso, rec IV abx. If improvement can dc tomorrow on oral abx. If no improvement then continue iv abx * DM-BS uncontrolled - will hold off home dose Metformin - FS AC& HS - Insulin sliding scale - will check Hgb Alc * HTN - will cont on home dose Lisinopril - will monitor off HCT in view of Na 135 and Bun 27 - will monitor BP closely * HDL - will cont on Statin * VTE: Lovenox * F/E/N: IV hydration, replace electrolytes as needed and consistent carb diet. Covid test report pending Family Medical History Family History: Denies Visit type - Medication Review Med list reviewed for High Risk Meds patients 65 and older: Yes - Emergency Visit Emergency Visit: Yes ED Registration Date: 09/13/19 Care time: The patient presented to the Emergency Department on the above date and was hospitalized for further evaluation of their emergent condition. - New Patient This patient is new to me today: Yes Date on this admission: 09/13/19 - Critical Care Critical Care patient: No
[2019-09-13] MEDS ORDERED: ACETAMINOPHEN 325 MG TABLET (FP) PO PRN (14:02)
[2019-09-13] MEDS ORDERED: traMADol HCL 50 MG TABLET PO PRN (14:03)
[2019-09-13] MEDS: SODIUM CHLORIDE 1,000 ML IV SCH (14:35)
[2019-09-13] MEDS: ENOXAPARIN NA (PORCINE) 40 MG/0.4 ML DISP.SYRIN SQ SCH (14:40)
[2019-09-13 15:42] VITALS: BMI 35.0
[2019-09-13] MEDS: INSULIN SLIDING SCALE (NOVOLOG) 1 VIAL SQ SCH ×2 (17:24→21:47)
[2019-09-13] MEDS: CLINDAMYCIN 600MG PREMIX IVPB 600 MG/50 ML BAG IVPB SCH (18:17)
[2019-09-13] MEDS: ATORVASTATIN CA 10 MG TABLET (FP) PO SCH (21:46)
[2019-09-14] MEDS: CLINDAMYCIN 600MG PREMIX IVPB 600 MG/50 ML BAG IVPB SCH ×3 (02:04→18:17)
[2019-09-14] MEDS: INSULIN SLIDING SCALE (NOVOLOG) 1 VIAL SQ SCH ×4 (07:01→21:08)
[2019-09-14 08:44] LABS: HEMATOCRIT 38.1 % (35.4-49); HEMOGLOBIN 12.8 GM/dl (11.7-16.9); MCH 29.8 pg (25.7-33.7); MCHC 33.4 g/dl (32.0-35.9); MEAN CELL VOLUME 89.2 fl (80-96); MEAN PLT VOLUME 8.1 fl (7.5-11.1); PLATELET COUNT 204 K/MM3 (134-434); RBC 4.28 M/mm3 (4.00-5.60); RDW 11.8 % (11.9-15.9); WHITE BLOOD COUNT 7.2 K/mm3 (4.0-10.8)
[2019-09-14 09:02] LABS: CALCIUM 8.9 mg/dl (8.5-10); CREATININE 0.9 mg/dl (0.55-1.3); POTASSIUM 3.8 mmol/L (3.5-5.1)
[2019-09-14] MEDS: LACTOBACILLUS ACIDOPHILUS 1 TABLET PO SCH (09:51)
[2019-09-14] MEDS: ENALAPRIL MALEATE 10 MG TABLET (FP) PO SCH (09:52)
[2019-09-14] MEDS: ENOXAPARIN NA (PORCINE) 40 MG/0.4 ML DISP.SYRIN SQ SCH (09:52)
[2019-09-14] MEDS: ASPIRIN COATED 81 MG TABLET.EC PO SCH (09:52)
[2019-09-14] MEDS: SODIUM CHLORIDE 1,000 ML IV SCH (13:37)
--- NOTE | 2019-09-14 17:17 | EKG ---
Test Reason : Blood Pressure : / mmHG Vent. Rate : 081 BPM Atrial Rate : 081 BPM P-R Int : 218 ms QRS Dur : 090 ms QT Int : 370 ms P-R-T Axes : 056 -36 064 degrees QTc Int : 429 ms SINUS RHYTHM WITH 1ST DEGREE A-V BLOCK LEFT AXIS DEVIATION INFERIOR INFARCT (CITED ON OR BEFORE 06-APR-2017) ABNORMAL ECG WHEN COMPARED WITH ECG OF 24-MAR-2019 09:58, NO SIGNIFICANT CHANGE WAS FOUND Confirmed by MD Sidney, Tomás ([id number]) on 09/14/2019 5:16:52 PM Referred By: DR Harpal MURRIETA Confirmed By:Tomás Little MD
--- NOTE | 2019-09-14 19:39 | PN ---
Progress Note, Physician History of Present Illness: patient seen and examined at bedside. Daughter Amy du. no imaging done. Afebrile. Blood glucose uncontrolled. Doesn't check it at home. Denies nausea vomiting fever chills chest pain or SOB. has penile pain. no dysuria or other urinary symptoms. Unable to retract penile foreskin. - Current Medication List Current Medications: Active Medications Acetaminophen (Tylenol -) 650 mg PO Q6H PRN PRN Reason: FEVER Last Admin: 09/13/19 21:46 Dose: 650 mg Documented by: Aspirin (Ecotrin -) 81 mg PO DAILY [facility] Last Admin: 09/14/19 09:52 Dose: 81 mg Documented by: Atorvastatin Calcium (Lipitor -) 10 mg PO HS [facility] Last Admin: 09/13/19 21:46 Dose: 10 mg Documented by: Enalapril Maleate (Vasotec -) 20 mg PO DAILY [facility] Last Admin: 09/14/19 09:52 Dose: 20 mg Documented by: Enoxaparin Sodium (Lovenox -) 40 mg SQ DAILY [facility] Last Admin: 09/14/19 09:52 Dose: 40 mg Documented by: Sodium Chloride (Normal Saline -) 1,000 mls @ 75 mls/hr IV ASDIR [facility] Last Admin: 09/14/19 13:37 Dose: 75 mls/hr Documented by: Clindamycin Phosphate (Cleocin 600 Mg Premix Ivpb -) 600 mg in 50 mls @ 100 mls/hr IVPB Q8H-IV [facility]; Protocol Last Admin: 09/14/19 09:52 Dose: 100 mls/hr Documented by: Insulin Aspart (Novolog Vial Sliding Scale -) 1 vial SQ [facility]; Protocol Last Admin: 09/14/19 16:18 Dose: 4 unit Documented by: Insulin Detemir (Levemir Vial) 8 units SQ [facility] Lactobacillus Acidophilus (Bacid -) 1 tab PO DAILY [facility] Last Admin: 09/14/19 09:51 Dose: 1 tab Documented by: Tramadol HCl (Ultram -) 50 mg PO Q6H PRN PRN Reason: PAIN LEVEL 6-10 - Objective Vital Signs: Vital Signs Temperature 99 F 09/14/19 14:07 Pulse Rate 89 09/14/19 14:07 Respiratory Rate 19 09/14/19 14:07 Blood Pressure 102/52 L 09/14/19 14:07 O2 Sat by Pulse Oximetry (%) 91 L 09/14/19 14:07 Constitutional: Yes: No Distress, Calm, Obese Eyes: Yes: Conjunctiva Clear, EOM Intact HENT: Yes: Atraumatic, Other (moist mucous membranes) Neck: Yes: Supple Cardiovascular: Yes: Regular Rate and Rhythm Respiratory: Yes: CTA Bilaterally Gastrointestinal: Yes: WNL, Normal Bowel Sounds, Soft, Abdomen, Obese Genitourinary: Yes: Other (Uncircumsized penis. Phimosis. no crepitus. penile edema. erythema of the foreskin of penis. cant see glans of penis as foreskin can not be retracted.). No: CVA Tenderness - Left, CVA Tenderness - Right Edema: Yes Edema: LLE: Trace, RLE: Trace Neurological: Yes: Alert Psychiatric: Yes: Alert Labs: CBC, BMP 09/14/19 06:00 09/14/19 06:00 - ....Imaging Chest X-ray: Report Reviewed, Image Reviewed Impression/Plan Impression/Plan: 68 year old [place] male with PMH HTN, HLD, DM presents for the evaluation of penile swelling and pain. Admitted with phimosis and Penile cellulitis. Balanitis, phimosis, Penile cellulitis, r/o fourniers gangrene no leukocytosis UCx with 20,000 CFU of strep agalactiae group B urology consult continue clindamycin ID consult Pain control BCx negative so far stop IVF DM-BS uncontrolled needs better control given infection HbA1C is 11.3% hold metformin will start levemir 8 units QHS and increase as needed BGM and ISS TID AC and HS required 24 units of sliding scale in past 24 hours HTN continue on Lisinopril Acceptable BP at this time HLD continue Statin DVT PPx: Lovenox F/E/N: Stop IVF no electrolyte issues diabetic/sodium controlled diet Covid test negative Visit type - Emergency Visit Emergency Visit: Yes ED Registration Date: 09/13/19 Care time: The patient presented to the Emergency Department on the above date and was hospitalized for further evaluation of their emergent condition. - New Patient This patient is new to me today: Yes Date on this admission: 09/14/19 - Critical Care Critical Care patient: No - Medication Review Med list reviewed for High Risk Meds patients 65 and older: Yes
[2019-09-14] MEDS: ATORVASTATIN CA 10 MG TABLET (FP) PO SCH (21:08)
[2019-09-14] MEDS ORDERED: INSULIN (LEVEMIR) 100 UNITS/ML UNITS SQ SCH (22:00)
[2019-09-15] MEDS: CLINDAMYCIN 600MG PREMIX IVPB 600 MG/50 ML BAG IVPB SCH (01:25)
[2019-09-15] MEDS: INSULIN SLIDING SCALE (NOVOLOG) 1 VIAL SQ SCH ×2 (06:59→12:16)
[2019-09-15 07:30] LABS: BASO % 0.8 % (0-2.0); EOS % 2.3 % (0-4.5); HEMATOCRIT 36.8 % (35.4-49); HEMOGLOBIN 12.1 GM/dl (11.7-16.9); LYMPH % 31.3 % (8-40); MCH 29.4 pg (25.7-33.7); MCHC 32.9 g/dl (32.0-35.9); MEAN CELL VOLUME 89.4 fl (80-96); MONO % 6.9 % (3.8-10.2); NEUT % 58.7 % (42.8-82.8); PLATELET COUNT 260 K/MM3 (134-434); RBC 4.12 M/mm3 (4.00-5.60); RDW 11.9 % (11.9-15.9); WHITE BLOOD COUNT 7.1 K/mm3 (4.0-10.8)
[2019-09-15 07:36] LABS: CALCIUM 8.4 mg/dl (8.5-10); MAGNESIUM 1.9 mg/dL (1.8-2.4)
--- NOTE | 2019-09-15 09:12 | PN ---
Progress Note (short form) - Note Progress Note: ID CONSULT DICTATED BALANOPOSTHITIS/PENILE CELLULITIS DIABETES MELLITUS +URINE C/S GRP B STREP CEFTRIAXONE/ FLUCONAZOLE TOPICAL ANTIFUNGAL EVALUATION IF CLEARED BY SUBSTITUTE PO CEFTIN 500MG BID X7D, PO FLUCONAZOLE 100MG QD X 7D TOPICAL ANTIFUNGAL
[2019-09-15] MEDS ORDERED: CEFTRIAXONE 2 GM-D5W BAG 2 GM/50 ML BAG IVPB SCH (10:00)
[2019-09-15] MEDS ORDERED: NYSTATIN POWDER 100,000 UNITS/GM - 15 GM TOPICAL POWDER TP SCH (10:00)
[2019-09-15] MEDS ORDERED: FLUCONAZOLE 100 MG/NS 50 ML IVPB SCH (10:00)
[2019-09-15 10:07] VITALS: BP 137/65; PULSE 80; TEMP 98.6
[2019-09-15] MEDS: ASPIRIN COATED 81 MG TABLET.EC PO SCH (10:13)
[2019-09-15] MEDS: LACTOBACILLUS ACIDOPHILUS 1 TABLET PO SCH (10:13)
[2019-09-15] MEDS: ENOXAPARIN NA (PORCINE) 40 MG/0.4 ML DISP.SYRIN SQ SCH (10:14)
[2019-09-15] MEDS ORDERED: PT OWN MED DRAWER 7, Y5N ONE (10:21)
[2019-09-15] MEDS: ENALAPRIL MALEATE 10 MG TABLET (FP) PO SCH (10:31)
--- NOTE | 2019-09-15 11:34 | DS ---
Physical Exam: SUBJECTIVE: Patient seen and examined OBJECTIVE: Vital Signs Period Temp Pulse Resp BP Sys/[place] Pulse Ox Last 24 Hr 98.1 F-99.2 F 69-89 18-19 102-144/52-88 91-99 PHYSICAL EXAM GENERAL: The patient is awake, alert, and fully oriented, in no acute distress. LUNGS: Breath sounds equal, clear to auscultation bilaterally, no wheezes, no crackles, no accessory muscle use. HEART: Regular rate and rhythm, S1, S2 without murmur, rub or gallop. ABDOMEN: Soft, nontender, nondistended, normoactive bowel sounds : Uncircumcised penis, able to only minimally retract foreskin, no drainage; mild erythema, no tenderness EXTREMITIES: 2+ pulses, warm, well-perfused, no edema. NEUROLOGICAL: Cranial nerves II through XII grossly intact. Normal speech LABS Laboratory Results - last 24 hr 09/14/19 09/14/19 09/14/19 11:45 16:12 20:55 WBC RBC Hgb Hct MCV MCH MCHC RDW Plt Count MPV Absolute Neuts (auto) Neutrophils % Lymphocytes % Monocytes % Eosinophils % Basophils % Sodium Potassium Chloride Carbon Dioxide Anion Gap BUN Creatinine Est GFR (CKD-EPI)AfAm Est GFR (CKD-EPI)NonAf POC Glucometer 269 224 264 Random Glucose Calcium Magnesium 09/15/19 09/15/19 09/15/19 06:10 07:02 07:02 WBC 7.1 RBC 4.12 Hgb 12.1 Hct 36.8 MCV 89.4 MCH 29.4 MCHC 32.9 RDW 11.9 Plt Count 260 D MPV 7.0 L D Absolute Neuts (auto) 4.1 Neutrophils % 58.7 Lymphocytes % 31.3 Monocytes % 6.9 Eosinophils % 2.3 Basophils % 0.8 Sodium 138 Potassium 4.0 Chloride 103 Carbon Dioxide 26 Anion Gap 9 BUN 18.0 Creatinine 1.0 Est GFR (CKD-EPI)AfAm 89.23 Est GFR (CKD-EPI)NonAf 76.99 POC Glucometer 158 Random Glucose 188 H Calcium 8.4 L Magnesium 1.9 Date of Admission:09/13/19 Date of Discharge: 09/15/19 Pre hospital course 68 year-old male with PMH significant for HTN, HLD, and Type II NIDDM, presented to [facility] with penile swelling and pain x 4 days. Denied fever, sweats, chills. Denied trauma. No penile discharge, but states tip of penis is red and swollen and tender. Pt denies scrotal pain. pt denies testicular pain. Pt denies all other complaints. Pt ambulated into the ER. States he was trying to see his pmd, couldn't get in, so he went to [facility] which recommended the patient come in for evaluation. Hospital course Balanoposthitis/penile cellulitis --empirically treated with ceftriaxone and fluconazole, topical Nystatin powder --discharged on Ceftin and fluconazole for an additional 7 days Minutes to complete discharge: 35 Discharge Summary Problems reviewed: Yes Reason For Visit: PENIS ABSCESS Current Active Problems Balanitis (Acute) Penile cellulitis (Acute) Condition: Improved - Instructions Diet, Activity, Other Instructions: Three prescriptions have been sent to your pharmacy: one is for ceftin (pills) and the other is for fluconazole (pills). Take these medications as prescribed and be sure to finish all the medication. The third prescription is for Nystatin powder which you should apply to your penis and scrotum once a day. It is important you follow up with a urologist within 1-2 weeks of your discharge. If you wish to see Dr. Fregoso, his contact information is enclosed. Please call his office to make an appointment. Referrals: Thomas Fregoso MD [Staff Physician] - 1 Week Genny Acuña MD [Primary Care Provider] - Disposition: HOME - Home Medications Comprehensive Discharge Medication List: Ambulatory Orders Aspirin [Aspirin EC] 81 mg PO DAILY 03/24/19 Atorvastatin Ca [Lipitor] 10 mg PO HS 03/24/19 Enalapril Maleate [Vasotec] 20 mg PO DAILY 03/24/19 Hydrochlorothiazide [Hctz -] 25 mg PO DAILY 03/24/19 Metformin HCl [Glucophage] 1,000 mg PO BID 03/24/19 This patient is new to me today: Yes Date on this admission: 10/07/19 Emergency Visit: Yes ED Registration Date: 09/13/19 Care time: The patient presented to the Emergency Department on the above date and was hospitalized for further evaluation of their emergent condition. Critical Care patient: No - Discharge Referral Referred to [facility] No
--- NOTE | 2019-09-15 16:44 | CONS ---
DATE OF CONSULTATION: DATE OF DICTATION: 09/15/2019 INFECTIOUS DISEASE CONSULTATION HISTORY OF PRESENT ILLNESS: The patient is a 68-year-old [place]-speaking male who is evaluated for balanitis. He was admitted to the hospital on September 15, 2019, with a 4-day history of increasing erythema, pain and swelling of the distal aspect of his penile shaft. History was obtained from the chart. There was no report of any genital trauma. He denied urinary tract complaints. No dysuria or hematuria. No difficulty voiding. He has had no urethral discharge. He had no associated fever or chills. The patient lives with his significant other and is sexually active. He was seen at a nursing care center and was referred to the emergency room. In the hospital, he was noted to have balanitis and erythema involving the distal aspect of the penile shaft. He was treated empirically with clindamycin. Patient has history of diabetes mellitus on oral medication. PAST MEDICAL HISTORY: Positive for diabetes mellitus, hypertension, hyperlipidemia. ALLERGIES: No known allergies. MEDICATION: At the present time include: 1. Clindamycin. 2. Lovenox. 3. Lipitor. 4. Enalapril. 5. Tylenol. 6. Aspirin. 7. Tramadol. SOCIAL HISTORY: He is [place] speaking. He lives in the community at home with his . Nonsmoker. Occasional ETOH. SYSTEMS REVIEW: Neurologic: No loss of consciousness, seizure activity, focal weakness. Cardiac: Negative for chest pain or palpitations. Respiratory: Negative for cough or sputum production. Gastrointestinal: Negative vomiting or diarrhea. Genitourinary: As per HPI. LABORATORY DATA: White count 7.1, hematocrit 36.8, platelets 260, creatinine 1.0. Chest x-ray negative. Ultrasound negative for soft tissue abscess. COVID-19 smear negative. Urinalysis 0-2 white cells. Blood cultures preliminarily negative. Urine culture group B strep. PHYSICAL EXAMINATION: General: On physical examination, he is supine in bed in no acute distress. Vital signs: Temperature 98.1, blood pressure 135/77, pulse 72 regular, respirations 18 per minute. HEENT: Sclerae anicteric. Cardiovascular: Heart sounds S1, S2. Lungs: Clear. Abdomen: Soft. Genitourinary: Examination of the genital area uncircumcised. There is swelling present of the foreskin. I am unable to fully retract the foreskin. The foreskin is erythematous, swollen, and warm. There is also erythema, warmth, and swelling extending to the mid shaft of the penis. No purulent drainage is noted. No palpable inguinal adenopathy. IMPRESSION: 1. Balanoposthitis/penile cellulitis. 2. Diabetes mellitus. 3. Positive urine culture, grew B. strep. Empiric antibiotic coverage with ceftriaxone and fluconazole. Topical antifungal therapy. Urology evaluation. At the present time, patient has no problems voiding. If cleared by urology, may substitute oral antibiotic therapy with Ceftin 500 mg p.o. b.i.d. for 7 days and fluconazole 100 mg p.o. daily for 7 days with topical antifungal and outpatient urology followup. Thank you for the kind referral. CYNTHIA SALMERON M.D. [id number]
== END 2019-09-15 12:57 | disposition home or self-care (01) | DRG 501 ==
LOC: FER 10:50 → FM/S 13:06 → UNDOADMIN 13:34
PROVIDERS: ATTEND Nurse Practitioner Acute Care
DX: N47.6 Balanoposthitis (principal); E11.65 Type 2 diabetes mellitus with hyperglycemia; I10 Essential (primary) hypertension; E78.5 Hyperlipidemia, unspecified; Z79.84 Long term (current) use of oral hypoglycemic drugs; E66.9 Obesity, unspecified; Z68.35 Body mass index [BMI] 35.0-35.9, adult; Z11.59 Encounter for screening for other viral diseases
CPT/HCPCS: 36415; 71045-TC-FY; 72193-TC; 76999; 80048; 80053; 81003; 81015; 82962; 83036; 83735; 85025; 85027; 86780; 87040; 87086; 87491; 87591; 93005; 99285-25; Q9967; U0003